=== PATIENT | male | born 1970 | race Caucasian/White ===

== ENCOUNTER 2025-05-02 16:50 | Emergency (ER) | payer OTHER, SELFPAY ==
--- NOTE | ~2025-05-02 | XR_ITS ---
EXAMINATION: XR foot LT min 3V DATE: 05/02/2025 17:19 INDICATION: Heel pain for one week. No injury TECHNIQUE: 3 images of the left foot were obtained. COMPARISON: None. FINDINGS: Bone mineralization is within normal limits. No fracture. No dislocation. Small plantar calcaneal spu r. IMPRESSION: 1. No acute bony abnormality. 2. Small plantar calcaneal spur. If symptoms persist or worsen, consider a short-term follow-up study or additional imaging for furthe r assessment. Reviewed, dictated and finalized at location A. IMPRESSION: 1. No acute bony abnormality. 2. Small plantar calcaneal spur. If symptoms persist or worsen, consider a short-term follow-up study or additio nal imaging for further assessment.
--- OUTSIDE RECORDS SUMMARY | 2025-05-02 16:58 | XMS_ITS | Encounter Summary ---
Author Organization [facility] [facility] Address [address] [place] [address] Phone Care Team Providers Care Chemical Economist Name Role Phone Rodríguez Linda MD Primary Care Provi olena Nishant Baker Primary Care Provider Encounter Details Date Type Department Care Team (Late st Contact Info) Description 10/22/2017 Orders Only [facility] ProviderAlexx MD [address] [place] [id number] Social History Tobacco Use Types Packs/Day Years Used Date Smoking Tobacco: Every Day Alcohol Use Standard Drinks/Week Comments Yes 0 (1 standard drink = 0.6 oz pur e alcohol) Sex and Gender Information Value Date Recorded Sex Assigned at Not on file 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 Historical Provider LAB BLOOD ORDERABLES Ilana l Result documented in this encounter Visit Diagnoses Not on filedocumented in this encounter Care Teams Chemical Economist Relationship Specialty Start Date End Date Rodríguez Linda MD PCP - General 12/17/16 05/24/22 Nishant Baker PA [address] [facility] [address] [address] [place] [address] [place] [id number] PCP - General Internal Medicine 05/25/22 documented as of this encounter
--- OUTSIDE RECORDS SUMMARY | 2025-05-02 16:58 | XMS_ITS | Clinical Summary ---
Author Organization [facility] Address [address] [place] [address] Care Team Providers Care Vp Platforms Name Role Phone Nishant Baker Primary Care Provider Allergies No known active allergies Medications clotrimazole-be tamethasone (LOTRISONE) cream Apply topically 2 (two) times a day 45 g 1 3 Active sildenafiL (VIAGRA) 100 mg tablet TAKE ONE TABLET BY MOUTH 30 TO 45 MINUTES BEFORE SEXUAL ACTIVITY 6 tablet 11 4 Active ergocalciferol (VITAMIN D) 50,000 unit capsule TAKE 1 CAPSULE BY MOUTH ONE TIME PER WEEK 12 capsule 4 4 Active naproxen (NAPROSYN) 500 mg tablet TAKE 1 TABLET (500 MG TOTAL) BY MOUTH 2 (TWO) TIMES A DAY NEEDED FOR PAIN WITH FOOD 30 tablet 4 Active famotidine (PEPCID) 40 mg tabletIndicatio ns:Laryngeal spasm TAKE 1 TABLET BY MOUTH EVERY DAY 30 tablet 4 Active valsartan (DIOVAN) 320 mg tablet Take 1 tablet (320 mg total) by mouth daily 90 tablet 4 5 11/07/19 26 Active atorvastatin (LIPITOR) 40 mg tablet TAKE 1 TABLET (40 MG TOTAL) BY MOUTH DAILY REPLACES 20MG ATORVASTATIN 90 tablet 3 5 Active Active Problems Problem Noted Date Diagnosed Date Personal history of colonic polyps 05/11/2024 Encounter for screening colonoscopy 05/11/2024 Laryngeal spasm 07/25/2023 Assessment & Plan (07/25/2023 3:05 PM OPERATIONAL RISK ANALYST): Modified Barium swallow Pepcid 40 mg at bedtime Laryngopharyngeal reflux discussed and Handout provided Oropharyngeal dysphagia 07/25/2023 Assessment & Plan (07/25/2023 3:05 PM OPERATIONAL RISK ANALYST): Modified Barium swallow Pepcid 40 mg at bedtime Tobacco use disorder 12/03/2021 Assessment & Plan (11/07/2024 8:13 AM OPERATIONAL RISK ANALYST): The patient was advised to quit smoking; the risks of continued tobacco use discussed. Assessment & Plan (05/04/2024 1:13 PM CDT): The patient was advised to quit smoking; the risks of continued tobacco use discussed. Assessment & Plan (08/24/2023 12:25 PM OPERATIONAL RISK ANALYST): He was advised to quit smoking; the risks of continued tobacco use discussed. Assessment & Plan (02/17/2023 4:13 PM CDT): The patient was advised to quit smoking; the risks of continued tobacco use discussed. Assessment & Plan (06/06/2022 12:04 PM CDT): He was advised to quit smoking; the risks of continued tobacco use discussed. Vitamin D deficiency 06/04/2021 Assessment & Plan (06/04/2021 3:22 PM CDT): Was 18 and now 33 but no sun protectoin and cunburn so start and stay with 2000/50mg Abnormal LFTs 06/17/2020 Assessment & Plan (06/17/2020 3:22 PM CDT): lft's back to nl Status post cervical spinal fusion 10/03/2019 Assessment & Plan (12/11/2019 2:20 PM CDT): Mr. Robins is improved after anterior cervical decompression and fusion from C5-C7. He has completed physical therapy and continues with a home exercise program. We will allow him to return to work at full duty without restriction on Tuesday. I plan to see him back in four months time with AP and flexion-extension cervical spine films at that time. Assessment & Plan (10/03/2019 12:39 PM OPERATIONAL RISK ANALYST): PLAN: - Start physical therapy/home exercise program - discontinue collar. - After 6 weeks, patient may resume NSAIDs, may increase activity as tolerated. 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 Ybarra in 6 weeks with Flexion/Extension Cervical spine films, vitamin-D check and to discuss return to work. Spinal stenosis in cervical region 07/03/2019 Overview (07/03/2019): Added automatically from request for surgery [id number] Other male erectile dysfunction 05/08/2019 Assessment & Plan (05/08/2019 3:42 PM CDT): Trial viagra. Empty stomack PE (physical exam), annual 05/08/2019 Assessment & Plan (05/04/2024 1:13 PM CDT): Discussed routine screenings and vaccines Assessment & Plan (12/02/2020 2:50 PM CDT): Healthy male. scraeening cmp a1c lipids psa all nl. Discussed covid vaccine and amdits to being on fence. Discussed and states on leaving will tke it. frepeat labs in 6 months and keep meds the same. Colon good till 2023 or 5 yr repeat./ Assessment & Plan (06/17/2020 3:12 PM CDT): Check on reutnr Assessment & Plan (05/08/2019 3:46 PM CDT): check Obstructive sleep apnea syndrome 11/08/2018 Assessment & Plan (11/08/2018 2:51 PM OPERATIONAL RISK ANALYST): Referral for sleep study. 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 Robins has a left C6 and C7 radiculopathies with motor weakness. He has some spondylosis C4-5 as well. Given the motor weakness, I have offered him C5-6 and C6-7 ACDF. He is aware that if he continues to smoke he will be at higher risk for non fusion and perioperative complications. Will perform this at our earliest convenience and he will endeavor to quit smoking. Assessment & Plan (05/08/2019 3:39 PM CDT): Failed inj and awaiting neuro eval Assessment & Plan (11/07/2017 2:47 PM OPERATIONAL RISK ANALYST): l arm burnig. Neck hurt. Flair as os 2 days ago and 1 m ontoh wtrted activnt uprefeerral back to dr godinez IGT (impaired glucose tolerance) 11/07/2017 Assessment & Plan (06/04/2021 3:26 PM CDT): a1c at 5.5 Assessment & Plan (12/02/2020 2:47 PM CDT): a1c at 5.6 and 5.6 nl. diet Assessment & Plan (06/17/2020 3:11 PM CDT): Fasting 98 Assessment & Plan (05/08/2019 3:40 PM CDT): a1c at 5.6 and nl Assessment & Plan (11/08/2018 2:52 PM OPERATIONAL RISK ANALYST): a1c at 5.5 and 5.6 nl. Assessment & Plan (05/08/2018 2:33 PM CDT): a1 At 5.4 odalys nl Assessment & Plan (11/07/2017 2:50 PM OPERATIONAL RISK ANALYST): a1c ast 5.4 and nl. Benign hypertension 03/24/2015 Overview (12/24/2016): BENIGN HYPERTENSION Assessment & Plan (11/07/2024 8:11 AM OPERATIONAL RISK ANALYST): Recommend DASH diet, heart healthy lifestyle, exercise. Discussed the risks of hypertension. Assessment & Plan (05/04/2024 1:13 PM CDT): Recommend DASH diet, heart healthy lifestyle, exercise. Discussed the risks of hypertension. Assessment & Plan (08/24/2023 12:25 PM OPERATIONAL RISK ANALYST): Recommend DASH diet, heart-healthy lifestyle, exercise. Discussed the risks of hypertension. Assessment & Plan (02/17/2023 4:14 PM CDT): Recommend DASH diet, heart healthy lifestyle, exercise. Discussed the risks of hypertension. Assessment & Plan (06/06/2022 12:02 PM CDT): Recommend DASH diet, heart-healthy lifestyle, exercise. Discussed the risks of hypertension. Assessment & Plan (12/02/2021 6:08 PM CDT): Recommend DASH diet, heart-healthy lifestyle, exercise. Discussed the risks of hypertension. Assessment & Plan (06/04/2021 3:25 PM CDT): The bp good and keep meds sameHypertension, Medical treament revolves around weight control, salt management, and meds when necessary. long as weight loss is necessary and you are able to drop weight we can cont to monitor the blood pressure and not add meds. Once the weight is not changing then it becomes nesessary to add meds to be able to reach the goal bp. Assessment & Plan (12/02/2020 2:47 PM CDT): The bp well c ontroled and no c hagsd in meds . Self check every month or two and watch for doping in summer heatHypertension, Medical treament revolves around weight control, salt management, and meds when necessary. long as weight loss is necessary and you are able to drop weight we can cont to monitor the blood pressure and not add meds. Once the weight is not changing then it becomes nesessary to add meds to be able to reach the goal bp. Assessment & Plan (06/17/2020 3:12 PM CDT): bp ok and no rogerio in medsHypertension, Medical treament revolves around weight control, salt management, and meds when necessary. long as weight loss is necessary and you are able to drop weight we can cont to monitor the blood pressure and not add meds. Once the weight is not changing then it becomes nesessary to add meds to be able to reach the goal bp. Assessment & Plan (11/27/2019 9:09 AM CDT): Recommend DASH diet, heart healthy lifestyle, exercise. Discussed the risks of hypertension. Assessment & Plan (05/08/2019 3:41 PM CDT): losarten 50 and bp on high sie and porpose . At home lower and watch and record from seeing md's Assessment & Plan (11/08/2018 2:50 PM OPERATIONAL RISK ANALYST): The b good and see if can't stay good. No chanesHypertension, Medical treament revolves around weight control, salt management, and meds when necessary. long as weight loss is necessary and you are able to drop weight we can cont to monitor the blood pressure and not add meds. Once the weight is not changing then it becomes nesessary to add meds to be able to reach the goal bp. Assessment & Plan (05/08/2018 2:32 PM CDT): The bp good and Wt off. If sgtays off will tend to stay down. No meds changedYour cholesterol in the form of ldl (bad) cholesterol,hdl(good) cholesterol and triglycerides are monitored. The triglycerides respond to reduction/controll of your simple carbs/sugars In such items as sugared soda/sweet tea along with fruit juices(containing natural sugar) even if no added sugar is added. LDL cholesterol is reduced with reducing daily intake of fats and jose francisco. saturated fats. The monosaturated fats like olive oil are not harmful except in the calories they contained. Whole milk cheese needs to be remembered along with whole milk products And limited. Assessment & Plan (11/07/2017 2:48 PM OPERATIONAL RISK ANALYST): .eulalio good and no changes monitor and see if down away from hereHypertension, Medical treament revolves around weight control, salt management, and meds when necessary. long as weight loss is necessary and you are able to drop weight we can cont to monitor the blood pressure and not add meds. Once the weight is not changing then it becomes nesessary to add meds to be able to reach the goal bp. Hyperlipidemia 02/02/2014 Overview (12/24/2016): HYPERLIPIDEMIA NEC/NOS Assessment & Plan (11/07/2024 8:12 AM OPERATIONAL RISK ANALYST): Counseled on heart healthy diet and exercise Assessment & Plan (05/04/2024 1:14 PM CDT): Counseled on heart healthy diet exercise Assessment & Plan (06/04/2021 3:24 PM CDT): ldl at 105 and stagble Go to 40 on refill given ascvd risk 7.8 and all risk factgonrs hasYour cholesterol in the form of ldl (bad) cholesterol,hdl(good) cholesterol and triglycerides are monitored. The triglycerides respond to reduction/controll of your simple carbs/sugars In such items as sugared soda/sweet tea along with fruit juices(containing natural sugar) even if no added sugar is added. LDL cholesterol is reduced with reducing daily intake of fats and jose francisco. saturated fats. The monosaturated fats like olive oil are not harmful except in the calories they contained. Whole milk cheese needs to be remembered along with whole milk products And limited. Assessment & Plan (12/02/2020 2:48 PM CDT): ldl at 103 and want no higher given ascvd risk 8.5% if drifts up then incarase meds Your cholesterol in the form of ldl (bad) cholesterol,hdl(good) cholesterol and triglycerides are monitored. The triglycerides respond to reduction/controll of your simple carbs/sugars In such items as sugared soda/sweet tea along with fruit juices(containing natural sugar) even if no added sugar is added. LDL cholesterol is reduced with reducing daily intake of fats and jose francisco. saturated fats. The monosaturated fats like olive oil are not harmful except in the calories they contained. Whole milk cheese needs to be remembered along with whole milk products And limited. Assessment & Plan (06/17/2020 3:11 PM CDT): ldl at 130 and with ascvd risk 8.7 will Change to atorvstin 20 and see if can't tighten ad superintendent terminal shot for 60. Your cholesterol in the form of ldl (bad) cholesterol,hdl(good) cholesterol and triglycerides are monitored. The triglycerides respond to reduction/controll of your simple carbs/sugars In such items as sugared soda/sweet tea along with fruit juices(containing natural sugar) even if no added sugar is added. LDL cholesterol is reduced with reducing daily intake of fats and jose francisco. saturated fats. The monosaturated fats like olive oil are not harmful except in the calories they contained. Whole milk cheese needs to be remembered along with whole milk products And limited. Assessment & Plan (05/08/2019 3:40 PM CDT): ldl at 121 and acceptble without high risk Assessment & Plan (11/08/2018 2:51 PM OPERATIONAL RISK ANALYST): ldl jumped to 151 and ws 111. This speaks of likely missing a single pill the week of labs and will not changd as all rest less then 120Your cholesterol in the form of ldl (bad) cholesterol,hdl(good) cholesterol and triglycerides are monitored. The triglycerides respond to reduction/controll of your simple carbs/sugars In such items as sugared soda/sweet tea along with fruit juices(containing natural sugar) even if no added sugar is added. LDL cholesterol is reduced with reducing daily intake of fats and jose francisco. saturated fats. The monosaturated fats like olive oil are not harmful except in the calories they contained. Whole milk cheese needs to be remembered along with whole milk products And limited. Assessment & Plan (05/08/2018 2:33 PM CDT): ldl at 117 and dropped 30-40. Much better and without high risk stat whwerf at. Your cholesterol in the form of ldl (bad) cholesterol,hdl(good) cholesterol and triglycerides are monitored. The triglycerides respond to reduction/controll of your simple carbs/sugars In such items as sugared soda/sweet tea along with fruit juices(containing natural sugar) even if no added sugar is added. LDL cholesterol is reduced with reducing daily intake of fats and jose francisco. saturated fats. The monosaturated fats like olive oil are not harmful except in the calories they contained. Whole milk cheese needs to be remembered along with whole milk products And limited. Assessment & Plan (11/07/2017 2:49 PM OPERATIONAL RISK ANALYST): ldl at 149 and less then 130 target. Your cholesterol in the form of ldl (bad) cholesterol,hdl(good) cholesterol and triglycerides are monitored. The triglycerides respond to reduction/controll of your simple carbs/sugars In such items as sugared soda/sweet tea along with fruit juices(containing natural sugar) even if no added sugar is added. LDL cholesterol is reduced with reducing daily intake of fats and jose francisco. saturated fats. The monosaturated fats like olive oil are not harmful except in the calories they contained. Whole milk cheese needs to be remembered along with whole milk products And limited. Resolved Problems Problem Noted Date Diagnosed Date Resolved Date Encounter for screening colonoscopy 05/11/2024 11/07/2024 Class 1 obesity with body ma ss index (BMI) of 30.0 to 30.9 in adult 12/02/2020 05/04/2024 Assessment & Plan (08/24/2023 12:26 PM OPERATIONAL RISK ANALYST): He was counseled on the importance of maintaining a healthy weight and the risks of obesity. Weight loss recommended. Assessment & Plan (06/04/2021 3:25 PM CDT): Watch wt BMI 30.0-30.9,adult 06/17/2020 06/04/20 21 Assessment & Plan (06/17/2020 3:22 PM CDT): Watch wt Colon cancer screening 11/08/201806/17 Assessment & Plan (11/08/2018 2:57 PM OPERATIONAL RISK ANALYST): Colon refe rral Screen for colon cancer 11/08/201804/19 Overview (11/08/2018): Added automatically from request for surgery [id number] Nocturia 11/07/2017 06/17/2020 Assessment & Plan (05/08/2018 2:34 PM CDT): Check psa on return Assessment & Plan (11/07/2017 2:53 PM OPERATIONAL RISK ANALYST): Check psa on return Cervical spondylosis with radiculopathy 05/14/2016 11/07/2017 Overview (12/23/2016): Cervical spondylosis with radiculopathy Disorder of lipid metabolism 02/02/2014 11/07/2017 Overview (12/24/2016): Steatosis Abnormal glucose tolerance test (GTT) 02/02/2014 11/07/2017 Overview (12/24/2016): IMPAIRED ORAL GLUCSE ZOEY Encounters Date Type Department Care Team Description 04/08/2025 Orders Only [facility] Primary Care at [address] [place] [phone] Nishant Baker PA Personal history of nicotine dependence (Primary Dx) 04/05/2025 Results Follow-Up [facility] Primary Care at [address] [place] [phone] Lung Cancer Screening 03/27/2025 4:50 PM CDT - 03/27/2025 11:59 PM CDT Hospital Encounter [address] [address] Personal history of nicotine dependence Discharge Disposition: Discharge to home or self care 03/25/2025 [address] [place] [address] Margarita Mccormack RN 03/13/2025 10:00 AM CDT - 03/13/2025 10:30 AM CDT Surgery [address] [address] Duc Jauregui MD COLON REMOVAL SNARE 03/13/2025 9:27 AM CDT Anesthesia Event [address] [address] Gorge Jewell MD 03/13/2025 8:21 AM CDT - 03/13/2025 10:38 AM CDT Hospital Encounter [address] [address] Duc Jauregui MD Encounter for screening colonoscopy; Personal history of colonic polyps; History of colonic polyps Discharge Disposition: Discharge to home or self care 03/13/2025 Results Follow-Up [facility] at [place] [address] [facility] [address] [place] [phone] Nishant Baker PA Colonoscopy, Surgical pathology 01/30/2025 Telephone [facility] Gastroenterology at [address] [place] [phone] Shawanda Acosta Prep Instructions from Last 3 Months Immunizations Immunization Administration Dates Next Due Influenza, Quadrivalent, Spl it, Preservative Free, Intramuscular 08/24/2023,06/07/2022,06/04/2021,06/17,11/08/2018 Influenza, Trivalent, Preser vative Free, Intramuscular 11/07/2024 Influenza, Unspecified 11/07/2024(Deferr ed: Patient Refused),05/04/2024(Deferred: Patient Refused),04/19/2023(Deferred: Patient Refused),11/27/2019(Deferred: Patient Refused) Pneumococcal Conjugate Pcv20 06/07/2022 Tdap 11/07/2024 ZOSTER Recombinant 08/24/2023,02/17/2023 Surgical History Surgery Date Site/Laterality Comments KNEE SURGERY 09/19/2011 - 09/18/2012 Right SHOULDER SURGERY 09/19/1999 - 09/18/2000 Left CARPAL TUNNEL RELEASE Left COLONOSCOPY 12/01/2018 SHOULDER SURGERY 09/19/1998 - 09/18/1999 Right HERNIA REPAIR CERVICAL FUSION 08/19/2019 - 09/18/2019 S/P C5-7 ACDF (epifanio) COLONOSCOPY 03/13/2025 N/A Medical History Medical History Date Comments Hypertension Hypercholesterolemia Spinal stenosis, cervical region Family History Medical History Relation Name Comments Heart disease Father Hypertension Father Colon cancer Mother Cancer Other 1 Family history of Cancer, unknown; Heart disease Other 2 Family history of Heart disease; Hypertension Other 3 Hypertension; Stroke Other 4 Stroke; Arthritis Other 5 Family history of arthritis; Diabetes Other 6 Family history of diabetes; Relation Name Status Comments Father Mother Alive Other 1 Other 2 Other 3 Other 4 Other 5 Other 6 Social History Tobacco Use Types Packs/Day Years Used Date Smoking Tobacco: Every Day Cigarettes 1.5 35 Smokeless Tobacco: Current Chew Tobacco Cessation:Ready to Q uit: No; Counseling Given: Yes Comments:12/11/19 - Restarted smoking - about 5 cigs/day - also using chewing tobacco Alcohol Use Standard Drinks/Week Comments Yes 6 (1 standard drink = 0.6 oz pur e alcohol) Moderate AUDIT-C Answer Date Recorded Q1: How often do you have a drink containing alc ohol? 2-3 times a week 03/12/2025 Q2: How many drinks containi ng alcohol do you have on a typical day when you are drinking? 5 or 6 03/12/2025 Q3: How often do you have si x or more drinks on one occasion? Never 03/12/2025 PHQ-2 Answer Date Recorded PHQ-2 Total Score (If total score is 3 or more points, staff should administer the PHQ-9) 0 11/07/2024 Personal Safety Answer Date Recorded Have you ever been in or are you currently in a harmful physical or emotional relationship or is someone making you feel afraid or unsafe? Denies 03/13/2025 Sex and Gender Information Value Date Recorded Sex Assigned at Not on file Legal Sex Male 2:54 PM OPERATIONAL RISK ANALYST Gender Identity Not on file Sexual Orientation Not on file Occupation Industry Job Start Date Job End Date Graduate Student Not on file Not on file Not on file Obstetrics History Last Filed Vital Signs Vital Sign Reading Time Taken Comments Blood Pressure 120/64 03/13/2025 10:25 AM CDT Pulse 63 03/13/2025 10:25 AM CDT Temperature 36.9 C (98.5 F) 03/13/2025 10:25 AM CDT Respiratory Rate 16 03/13/2025 10:25 AM CDT Oxygen Saturation 99% 03/13/2025 10:25 AM CDT Inhaled Oxygen Concentration - - Weight 86.2 kg (190 lb) 03/27/2025 5:07 PM CDT Height 170.2 cm (5' 7) 03/27/2025 5:07 PM CDT Body Mass Index 29.76 03/27/2025 5:07 PM CDT Plan of Treatment Health Maintenance Due Date Last Done Comments Covid-19 Vaccine (4 - 2023-2 5 season) 2024 09/27/2021, 02/15/2021, 01/25/2021 Prostate Cancer Screening-PSA 04/21/2025, 11/25/2021, 11/15/2020, Additional history exists Regular Well Visit/Exam 18-64 05/04/2025, 02/17/2023, 12/03/2021, Additional history exists Influenza Vaccine (#1) 2025 , 08/24/2023, 06/07/2022, Additional history exists Depression Screening 11/07/2025 11/07/2024, 05/04/2024, 08/24/2023, Additional history exists Lung Cancer Screening 03/28/2026 03/27/2025 , 03/26/2024, 03/14/2023 Colon Cancer Screening-Colonoscopy 03/13/2028 03/13/2025, 12/01/2018 DTaP/Tdap/Td Vaccine (2 - Td or Tdap) 11/07/2034 11/07/2024 Hepatitis C Screening Completed 01/26/2020 Pneumococcal vaccine <65 Completed 06/07/2022 Zoster Vaccine Completed 08/24/2023, 02/17/2023 Hepatitis B Screening Completed 10/27/2024 Colon Cancer Screening-CT Colonography Discontinued 03/13/2025, 12/01/2018 Colon Cancer Screening-DNA Stool Discontinued 03/13/20, 12/01/2018 Colon Cancer Screening-FIT Discontinued 03/13/2025, Colon Cancer Screening-Sigmoidoscopy Discontinued 03/13/2025, 12/01/2018 Medical Devices Implanted Type Area Mobile Home Set Up Person Device Identifier Shelf Expiration Date Model / Serial / Lot [employer] 700-025 I Factor Allograft Putty Syringe Graft 2.5cc Bone - [id number] Implanted:Qty: 1 on 08/24/2019 by Donovan Ybarra MD at [facility] N/A: Spine Cervical [employer] 03/18/2022 700-025 / / [id number] [employer] 3d Cervical [id number] 7 Deg - [id number] Implanted:Qty: 1 on 08/24/2019 by Donovan Ybarra MD at [facility] N/A: Spine Cervical Core Link [id number] 06/18/2024 [id number] / / [id number] Description:C6-7 [employer] 3d Cervical [id number] 7 Deg - [id number] Implanted:Qty: 1 on 08/24/2019 by Donovan Ybarra MD at [facility] N/A: Spine Cervical Core Link [id number] 05/03/2024 [id number] / / [id number] Core Link Anodyne 4mm 14mm Variable Angle Self Tap Spine Cervical Screw - [id number] Implanted:Qty: 6 on 08/24/2019 by Donovan Ybarra MD at [facility] N/A: Spine Cervical Core Link / / Core Link Anodyne 32mm Level 2 Spine Cervical Plate Bone - [id number] Implanted:Qty: 1 on 08/24/2019 by Donovan Ybarra MD at [facility] N/A: Spine Cervical Core Link / / Procedures Procedure Name Priority Date/Time Associated Diagnosis Comments CT LUNG CANCER SCREENING Schedule Routine, Read Routine (OP Routine) 03/27/2025 5:07 PM CDT Personal history of nicotine dependence SURGICAL PATHOLOGY STAT 03/13/2025 1: 52 PM CDT Encounter for screening colonoscopy History of colonic polyps COLON REMOVAL SNARE 03/13/2025 9 :13 AM CDT Encounter for screening colonoscopy Personal history of colonic polyps COLONOSCOPY 03/13/2025 8:28 AM CDT PSA SCREEN Routine 04/21/2024 11:03 AM CDT Preventative health care Screening PSA (prostate specific antigen) HEPATITIS PANEL, ACUTE Routine 01/26/2020 7:15 AM CDT from Last 3 Months or Most Recently Relevant to Health Maintenance Results * CT Lung Cancer Screening (03/27/2025 5:07 PM CDT) Anatomical Region Laterality Modality Chest N/A Computed Tomogra phy 04/05/2025 8:10 AM CDT Narrative 04/05/2025 8:12 AM CDT EXAM DESCRIPTION: CT LUNG CANCER SCREENING REASON FOR STUDY: Screening CT of the chest in a current smoker with a 55.5 pack year smoking history. Additional history: None. TECHNIQUE: Low dose CT scan of the chest was performed without intravenous contrast using helical scanning technique. The exam extends from the lung apices through the lung bases. Automatic exposure control was used as a dose optimization technique. NOTE: This study was performed for the specific purposes of lung cancer screening and is not an alternative to diagnostic chest CT. RADIATION DOSE: CT dose index volume (CTDIvol) = 2.25 mGy COMPARISON: 03/26/2024 FINDINGS: SMOKING RELATED LUNG DISEASE: Mild emphysematous changes noted. LUNG NODULES: A 3 mm pleural-based nodule between the right middle and lower lobes (axial image 202 of 320) is stable. There is a small calcified granuloma in the left lower lobe CORONARY ARTERY CALCIFICATION: Minimal OTHER: A mildly enlarged subcarinal lymph node measuring 1.3 cm in shortest diameter is unchanged. There are additional scattered subcentimeter mediastinal lymph nodes which are stable. The heart is normal in size. No pneumothorax or pleural effusion is present. IMPRESSION: 1. Stable pleural-based right lung nodule. 2. Stable mildly enlarged subcarinal lymph node. Lung-RADS category 2: Benign appearance or behavior. Recommendation: Low dose Screening CT of chest in 12 months. THIS IS AN ELECTRONICALLY VERIFIED FINAL REPORT 04/05/2025 8:12 AM - Electronically signed by Jeronimo Drake M.D. BS: MARILIA Report ID: [id number] Reading Location: [id number] Procedure Note Jeronimo Drake MD - 04/05/2025 EXAM DESCRIPTION: CT LUNG CANCER SCREENING REASON FOR STUDY: Screening CT of the chest in a current smoker with a 55.5 pack year smoking history. Additional history: None. TECHNIQUE: Low dose CT scan of the chest was performed without intravenous contrast using helical scanning technique. The exam extends from the lung apices through the lung bases. Automatic exposure control was used as adose optimization technique. NOTE: This study was performed for the specific purposes of lung cancer screening and is not an alternative to diagnostic chest CT. RADIATION DOSE: CT dose index volume (CTDIvol) = 2.25 mGy COMPARISON: 03/26/2024 FINDINGS: SMOKING RELATED LUNG DISEASE: Mild emphysematous changes noted. LUNG NODULES: A 3 mm pleural-based nodule between the right middle andlower lobes (axial image 202 of 320) is stable. There is a small calcified granuloma in the left lower lobe CORONARY ARTERY CALCIFICATION: Minimal OTHER: A mildly enlarged subcarinal lymph node measuring 1.3 cm inshortest diameter is unchanged. There are additional scattered subcentimeter mediastinal lymph nodes which are stable. The heart is normal in size.No pneumothorax or pleural effusion is present. IMPRESSION: 1. Stable pleural-based right lung nodule. 2. Stable mildly enlarged subcarinal lymph node. Lung-RADS category 2: Benign appearance or behavior. Recommendation: Low dose Screening CT of chest in 12 months. THIS IS AN ELECTRONICALLY VERIFIED FINAL REPORT 04/05/2025 8:12 AM - Electronically signed by Jeronimo Drake M.D. BS: BS Report ID: [id number] Reading Location: [id number] Nishant MERINO [facility] CT PROCEDURES Final Result * Surgical pathology (03/13/2025 1:52 PM CDT) Tissue (Polyp(s), colon/colorectal, esophageal, gastric) 03/13/2025 9:51 AM CDT Tissue specimen (specimen) (Polyp(s), colon/colorectal, esophageal, gastric) 03/13/2025 9:51 AM CDT Narrative PATHOLOGY [facility] - 03/14/2025 10:41 AM CDT EPIC results best viewed via link to PDF [facility] Department of Pathology [address] [place] [address] Note to Patients: This report may contain a detailed description of human tissue sent by a health care provider to the laboratory for pathologic evaluation. The content of this report is essential for diagnosis and may provide important critical findings. This information may be unfamiliar to patients to review without a medical professional present. It is advised that the patient review this report in the presence of a health care provider who can answer questions and explain the details. Final Report Patient Name: RICH ROBINS Address: [address] [place] [address] , [place] [address]- Gender: M : 1970 (Age: 54) Service: Gastro Location: [facility] Hospital #: [id number] Patient Type: [facility] Taken: 03/13/2025 Received: 03/13/2025 Accessioned: 03/13/2025 Reported: 03/14/2025 Physician(s):Dr. Duc Jauregui M.D. Diagnosis: A. Descending colon polyp x3, biopsy: - Tubular adenoma x3. - Negative for high-grade dysplasia. B. Ascending colon polyp x2, biopsy: - Tubulovillous adenoma x1; negative for high-grade dysplasia. - Tubular adenoma x1; negative for high-grade dysplasia. Jason Moe M.D. Report Electronically Reviewed and Signed Out By Jason Moe M.D. 03/14/2025 10:41:53 Specimen(s) Received: A: Descending polyp x 3 B: Ascending polyp x 2 Microscopic Description: A. Sections show a tubular adenoma x3. There is no evidence of high-grade dysplasia or invasive carcinoma. B. Sections show a tubulovillous adenoma x1 and a tubular adenoma x1. There is no evidence of high-grade dysplasia or invasive carcinoma. Clinical History: Screening colonoscopy. Personal history of colonic polyps. Colonoscopy. Gross Description: The specimen is submitted in two formalin containers labeled RICH ROBINS. A. The first container is labeled descending polyp x3. It is 3 fragments of stout tissue between 1 and 3 mm. All in A. B. The second container is labeled ascending polyp x2. It is multiple fragments of stout polypoid tissue between 1 and 4 mm. All in B. T.A. Milana Calderon., Ethan/Darling Tillman M.D. REPORT IMAGES AND SCANNED DOCUMENTS, IF INCLUDED, ONLY VIEWABLE IN PDF VERSION OF REPORT The performance characteristics of some immunohistochemical stains, fluorescence in-situ hybridization tests and immunophenotyping by flow cytometry cited in this report (if any) were determined by the Surgical Pathology Department at [facility] as part of an ongoing quality control program and in compliance with federally mandated regulations drawn from the Clinical Laboratory Improvement Act of 1988 (CLIA '88). Some of these tests rely on the use of analyte specific reagents and are subject to specific labeling requirements by the US Food and Drug Administration. Such diagnostic tests may only be performed in a facility that is certified by the Department of Health and Human Services as a high complexity laboratory under CLIA '88. The FDA has determined that such clearance or approval is not necessary. This test is used for clinical purposes. It should not be regarded as investigational or for research. Nevertheless, federal rules concerning the medical use of analyte specific reagents require that the following disclaimer be attached to the report: This test was developed and its performance characteristics determined by the Surgical Pathology Department [facility]. It has not been cleared or approved by the U. S. Food and Drug Administration. Note for decalcified specimens: This assay has not been validated on decalcified tissues. Results should be interpreted with caution given the possibility of false negativity on decalcified specimens us Duc Jauregui MD LAB PATHOLOGY ORDERABLES F inal Result PATHOLOGY [facility] [address] [place] [address] * Colonoscopy (03/13/2025 8:28 AM CDT) Anatomical Region Laterality Modality Other Narrative Procedure Note Duc Jauregui MD - 03/13/2025 8:28 AM CDT [facility] Patient Name: Rich Robins Procedure Date: 03/13/2025 8:28 AM Date of : 1970 Admit Type: Outpatient Age: 54 Gender: Male Attending MD: Duc Jauregui M.D. Room: [facility] ENDOSCOPY ROOM 1 Note Status: Finalized Patient Profile: This is a 54 year old male. History of polyps.Mother had colon cancer. Procedure: Colonoscopy Indications: Screening in patient at increased risk: Familyhistory of 1st-degree relative with colorectal cancer, Surveillance: Personal history of colonic polyps (unknown histology) on last colonoscopy more than 5 years ago, Last colonoscopy: November 2018 Referring MD: Nishant Baker PA-C Providers: Duc Jauregui M.D. Impression: - Two 5 to 10 mm polyps in the proximal ascending colon, removed with a cold snare. Resected and retrieved. Clip (MR conditional) was placed. Clip lockstitch zipper setter: Xfluential. - Three 5 to 7 mm polyps in the sigmoid colon andin the descending colon, removed with a cold snare. Resected and retrieved. - Internal hemorrhoids. Recommendation: - Await pathology results. - Repeat colonoscopy in 3 years for surveillance. - Avoid smoking and tobacco products as smoking maciej major risk factor for cancer. - Continue present medications. Medicines: Monitored Anesthesia Care Complications: No immediate complications. Estimated Blood Loss: Estimated blood loss: none. Procedure: Pre-Anesthesia Assessment: - Prior to the procedure, a History and Physicalwas performed, and patient medications and allergieswere reviewed. The patient's tolerance of previous anesthesia was also reviewed. The risks andbenefits of the procedure and the sedation options and risks were discussed with the patient. All questions were answered, and informed consent was obtained. Prior Anticoagulants: The patient has taken noanticoagulant or antiplatelet agents. ASA Grade Assessment: Per anesthesia note and evaluation. After reviewing the risks and benefits, the patient was deemed in satisfactory condition to undergo the procedure. The benefits, risks and alternatives of theprocedure and sedation were discussed and informed consentwas obtained. All questions were answered. Please referto the signed informed consent document in the medical record. The bowel preparation used was Miralax and bisacodyl tablets via split dose instruction. The scope was passed under direct vision. TheColonoscope [id number] was introduced through the anus and advanced to the the cecum, identified by appendiceal orifice and ileocecal valve. Thequality of the bowel preparation was good. Bowel prep was administered using a split dose. Findings: The perianal and digital rectal examinations were normal. The cecum appeared normal. Two sessile polyps were found in the proximal ascending colon. The polyps were 5 to 10 mm in size. These polyps were removed with a cold snare. Resection and retrieval were complete. To prevent bleedingafter the polypectomy, one hemostatic clip was successfully placed (MR conditional). Clip lockstitch zipper setter: Xfluential. There was no bleeding at the end of the procedure. The transverse colon appeared normal. Three sessile polyps were found in the sigmoid colon and descending colon. The polyps were 5 to 7 mm in size. These polyps were removedwith a cold snare. Resection and retrieval were complete. Internal hemorrhoids were found during retroflexion. The hemorrhoids were small. Electronically signed by Duc Jauregui M.D. Duc Jauregui M.D. 03/13/2025 10:06:21 AM Number of Addenda: 0 Note Initiated On: 03/13/2025 8:28 AM Procedure Code(s): --- Professional --- 99151, Colonoscopy, flexible; with removal of tumor(s), polyp(s), or other lesion(s) by snare technique Diagnosis Code(s): --- Professional --- Z80.0, Family history of malignant neoplasm of digestive organs Z86.010, Personal history of colonic polyps K64.8, Other hemorrhoids D12.2, Benign neoplasm of ascending colon D12.5, Benign neoplasm of sigmoid colon D12.4, Benign neoplasm of descending colon CPT copyright 2020 [employer]. All rights reserved. The codes documented in this report are preliminary and upon assistant scientist reviewmay be revised to meet current compliance requirements. Recognized by the [place] [employer] for promoting quality in endoscopy Duc Jauregui MD ENDOSCOPY PROCEDURES Final Result * PSA screen (04/21/2024 11:03 AM CDT) PSA-Total 1.37 <=3.90 ng/mL Comment: Interpretive Data AGE SEX REFERENCE INTERVAL 0 minutes-150 years Female None 0 minutes-49 years Male None 50-59 years Male 0-3.90 60-69 years Male 0-5.40 70-79 years Male 0-6.20 80-150 years Male 0-6.20 The Leon PSA Total assay procedure was used. Results from different manufacturers or methods may not be comparable. Serial testing should be performed using the same method. Current interpretive data last revised 22. Blood 04/21/2024 11:0 3 AM CDT 04/21/2024 11:26 AM CDT Yuriy MARTINEZ ([place]) - 04/21/2024 12:08 PM CDT fasting Nishant MERINO LAB BLOOD ORDERABLES Fi nal Result [facility]DSON JUAN ROGER) 1 [facility] Department [place] [address] * Hepatitis panel, acute (01/26/2020 7:15 AM CDT) Hep A IgM Nonreactive Nonreactive HUDSON MARTINEZ ([place]) Comment: Interpretive Data: If Hep A IgM Ab is reported as Equivocal, a new sample should be drawn in two weeks for testing. Current interpretive data was last revised on 19. Testing performed by: [address] [address] Hep B core IgM Nonreactive Nonreactive C JAQUI MARTINEZ ([place]) Comment: Interpretive Data If HepB Core IgM Ab is reported as Equivocal, a new sample should be drawn in two weeks for testing. Current interpretive data was last revised on 19. Testing performed by: [address] [address] Hep C Ab Nonreactive Nonreactive HUDSON MARTINEZ ([place]) Comment: Interpretive Data Nonreactive: Antibodies to HCV not detected. Does NOT exclude the possibility of recent exposure to HCV. Equivocal: Equivocal for HCV antibodies. Supplemental molecular testing will be automatically performed to determine infection status in accordance with current CDC screening recommendations. Reactive: Positive for HCV antibodies. This may represent current or past HCV infection. Supplemental molecular testing will be automatically performed to determine current infection status in accordance with current CDC screening recommendations. Interpretive data was last revised on 2019. Testing performed by: [address] [address] HepBsAg Nonreactive Nonreactive HUDSON MARTINEZ ([place]) Comment:Testing performed by : [address] [address] Blood specimen (specimen) 01/26/2020 7:15 AM CDT 01/26/2020 11:14 AM CDT us Nishant MERINO LAB MICROBIOLOGY - GENE RAL ORDERABLES Final Result [facility] Department [place] [address] from Last 3 Months or Most Recently Relevant to Health [place] [address] [facility] [place] [address] [facility] [facility] CHOICE PLUS [facility] [employer] PL[employer] Member Subscriber Plan / Payer (Ef fective 2016-Present) Name:Rich Robins Relation to Subscriber:Spouse Name:LIN ROBINS Date of :1973 (Home) Address: [address] [place] [address] Payer ID:[id number] (NAIC) Type:[employer] HMO/PPO Address: [place] [id number] Advance Directives For more information, please contact: [phone] * Full Code (Latest Code Status on File) Date Activated Date Inactivated Comments 03/13/2025 8:26 AM 03/13/2025 2:50 PM * Full Code Date Activated Date Inactivated Comments 03/13/2025 8:26 AM 03/13/2025 8:26 AM * Full Code Date Activated Date Inactivated Comments 12/01/2018 8:01 AM 12/01/2018 2:53 PM Care Teams Vp Platforms Relationship Specialty Start Date End Date Nishant Baker PA [address] [place] [address] [place] [address] PCP - General Internal Medicine 05/25/22
--- OUTSIDE RECORDS SUMMARY | 2025-05-02 16:58 | XMS_ITS | Continuity of Care Document ---
[facility] Organization [facility] Address [address] [place] [address] Phone Care Team Providers Care Litigation Counsel Name Role Phone Nrom Louise MD Unavailable Unavailable Advance Directives Directive Yes / No Effective Date File Name No Information Encounters Encounter Description Practice Location Reason(s) For Visit Diagnoses Date Provider Providers Copied on Encounter [facility], [address], [place], [place], [id number], [place] tel:[phone] [facility] No Information Dani Zheng. [address] , [place], [place], [id number], [place]. tel:[phone] Referring Provider: Higinio Logan [address] [place], [address]. tel:[phone] Family History Family Member Type Diagnosis Age At Onset No Information Payers Payer name Insurance type Covered libertarian ID Authoriza tion(s) [employer] [facility] [id number] Social History Type Description Quantity Date Captured Comments Sex Male Smoking Status No Information Chief Complaint And Reason For Visit No Information Reason For Referral Reason For Referral No Information History Of Present Illness Encounter Date Complaint History Of Prese nt Illness No Information Functional Status Date Functional Assessmen t No Information Instructions Date Instruction Additional Infor mation No Information Assessments Type Assessment Date No Information Patient Care Teams Name Effective Dates (start - stop) Status Members No Information
[2025-05-02 17:00] VITALS: BP 134/87; PULSE 96; RESP 20; TEMP 36.4; O2SAT 96
--- NOTE | 2025-05-02 17:17 | ED.EXTPRO ---
HPI - Extremity Problem General Chief complaint: Extremity Injury, Lower Stated complaint: left foot pain Time Seen by Provider: 05/02/25 17:03 Source: patient and RN notes reviewed Mode of arrival: ambulatory Limitations: no limitations History of Present Illness HPI Narrative: Patient presents today complaining of left heel pain x1 week. Pain is worse in the morning and better throughout the day. Denies numbness or tingling in the foot or toes. Denies injury or trauma. Currently rates his pain 4/10 and has been taking ibuprofen without relief. 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 Believes he has a bone spur. Related Data Home Medications ?Medication ?Instructions ?Recorded ?Confirmed ?Last Taken ?Type atorvastatin 40 mg tablet mg 05/02/25 Unknown History ergocalciferol (vitamin D2) 1,250 05/02/25 Unknown History mcg (50,000 unit) capsule valsartan 320 mg tablet mg 05/02/25 Unknown History Allergies Allergy/AdvReac Type Severity Reaction Status Date / Time No Known Allergies Allergy Verified 05/02/25 17:02 [facility] Comments At time of signature, I have reviewed and agree with nursing past medical, surgical, social and family history unless otherwise noted. Please see nursing chart for further information. There is no relevant family history pertinent to the presenting complaint Exam Narrative: GENERAL: Well-appearing, well-nourished, and in no acute distress. HEAD: Normocephalic, atraumatic. EYES: EOMI. No redness or drainage. Conjunctivae normal. ENT: Mucous membranes pink and moist. NECK: Normal AROM. CHEST: No respiratory distress. EXTREMITIES: Left foot: Foot is nontender to palpation. No edema, ecchymosis,. No tenderness along the Achilles tendon or plantar fascia. Distal sensation intact pedal pulse. Full range of motion ankle and toes. Localizes his pain on the posterior lower heel area SKIN: Warm, dry, no rash. Capillary refill normal. Normal skin turgor. NEURO: No focal deficits. Alert and oriented x3. Gait steady. PSYCH: Normal affect. No signs of depression or anxiety. Course Course Level of Care: Express Care Visit Vital Signs Vital signs: Vital Signs Temperature 97.6 F 05/02/25 17:00 Pulse Rate 96 05/02/25 17:00 Respiratory Rate 20 05/02/25 17:00 Blood Pressure 134/87 05/02/25 17:00 Pulse Oximetry 96 05/02/25 17:00 Oxygen Delivery Room Air 05/02/25 17:00 Temperature 97.6 F 05/02/25 17:00 Pulse Rate 96 05/02/25 17:00 Respiratory Rate 20 05/02/25 17:00 Blood Pressure 134/87 05/02/25 17:00 Pulse Oximetry 96 05/02/25 17:00 Oxygen Delivery Room Air 05/02/25 17:00 Reviewed MDM - Extremity (Nontraumatic) MDM Narrative Medical decision making narrative: 54-year-old male patient presents today with a one-week history of left heel pain is worse in the morning and better throughout the day. Exam is benign and nontender with palpation without edema. Ibuprofen provides no relief. X-ray shows small plantar calcaneal spur. This may or may not be causing patient's pain. Recommend follow-up with Podiatry. Patient agrees with plan. VSS. Anticipatory guidance given. Differential Diagnosis Differential diagnosis: Likely other (Osteoarthritis, plantar fasciitis, tendinitis) Imaging Data Radiologist's impression: ITS Impressions Foot X-Ray 05/02/25 17:29 IMPRESSION: 1. No acute bony abnormality. 2. Small plantar calcaneal spur. If symptoms persist or worsen, consider a short-term follow-up study or additional imaging for further assessment. Critical Care Time Critical Care Time Critical Care Time: No Discharge Plan Discharge Clinical Impression: Pain of left heel Patient Disposition: Home Condition: Stable Additional Instructions: Your x-ray shows a small bone spur, which may or may not be causing your discomfort. Continue Tylenol or ibuprofen for pain, needed. Recommend following up with podiatry for further evaluation and treatment. Your blood pressure was elevated above 120/80 today at Urgent Care. This puts you above the threshold for follow up. Please schedule a followup visit with your personal physician as soon as possible, for further evaluation and treatment. Even blood pressure exceeding 120/80 may indicate pre-hypertension. Patient Language: Kazakh Prescriptions: No Action atorvastatin 40 mg tablet valsartan 320 mg tablet ergocalciferol (vitamin D2) 1,250 mcg (50,000 unit) capsule Follow-up/Referrals: Shara Shelton DPM [Physician] - Samuel,Nishant D., PA [Primary Care Provider] - Kofi Tan Jr., DPM [Physician] - Time of Disposition: 17:40
== END 2025-05-02 17:46 | disposition home or self-care (01) ==
PROVIDERS: Emergency Provider Nurse Practitioner; PCP Physician Assistant
DX: M79.672 Pain in left foot (principal)
CPT/HCPCS: 73630; 99203; G0463